=== PATIENT | male | born 1990 | race Caucasian/White ===

== ENCOUNTER 2019-05-23 15:34 | Emergency (ER) | payer SELFPAY ==
[2019-05-23 15:36] VITALS: BP 147/83; PULSE 101; RESP 17; TEMP 37; O2SAT 98; BMI 31.2
--- NOTE | 2019-05-23 15:48 | ED.DCSUM_ITS ---
History of Present Illness Chief Complaint: Other, Pain/Inj Informant: Patient Onset: Weeks - 2 Narrative: 2-week history of swollen lymph node right anterior neck, however started having pain over 2 days. No fevers. Denies tobacco history. Denies dental pain. Denies any hot or cold sensitivities. No sore throat. Reports had a root canal left upper tooth 6 months ago, did not return for crown. However denies any symptoms in that area. No previous similar symptoms in the past. Patient with no PCP. Prior similar symptoms: No Past Medical History - Allergies and Home Meds Allergies/Adverse Reactions: Allergies Penicillins Allergy (Verified 05/23/19 15:35) Anaphylaxis Primary Care Physician: NOT,DEFINED [Primary Care Provider] - Review of Systems General: Denies: Chills, Fever, Sweats Eyes: Denies: Visual changes - bilaterally, Diplopia ENT: Denies: Rhinorrhea, Sore throat Cardiovascular: Denies: Chest pain, Palpitations Respiratory: Denies: Dyspnea, Cough, Dyspnea on exertion Gastrointestinal: Denies: Abdominal pain, Nausea, Vomiting, Diarrhea, Melena, Hematochezia Genitourinary: Denies: Dysuria, Hematuria, Frequency Musculoskeletal: Denies: Back pain, Extremity Pain Skin: Denies: Rash, Wounds Neurological: Denies: Headache, Weakness, Numbness Physical Exam Vital Signs/Narrative: Vital Signs Temp Pulse Resp BP Pulse Ox 05/23/19 15:36 98.6 F 101 H 17 147/83 H 98 Inital Vital Signs reviewed: Yes General: Well nourished, Well developed, No Acute Distress Head: Normocephalic, Atraumatic Eyes: Perrl, EOMI ENT: Moist mucous membranes, No rhinorrhea, - - No dental tenderness or cavities. No sublingual edema or mass. No erythema posterior pharynx. Airway patent. Neck: Supple, - - 2 cm right anterior lymph node tender to palpation. Cardiovascular: Regular rate, Regular rhythm, No murmurs Respiratory: No distress, CTA bilaterally, Chest nontender Abdomen: Soft, Nontender, Nondistended, Normal bowel sounds Back: Nontender, Normal Inspection Extremities: Nontender, No edema Skin: Normal color, No rash Neurological: Alert, Oriented x3, Cranial nerves II-XII grossly intact, Normal Strength, Normal Sensation Psychological: Normal affect, Normal Mood Diagnostic/Tx/Re-eval - Medical Decision Making Patient's vitals stable, exam with anterior cervical lymphadenitis. Unclear etiology at this source. He has no tobacco history. Discussed with patient his concerns, reports with enlarging now painful he got concerned. Primary concern would be cancerous. Discussed with patient diagnostic testing would not be available will need to be performed by specialist. Discussed can obtain imagings however it would not be diagnostic and before evaluation. He is concerned without insurance. Discussed with patient given follow-up with on- clinic specialist for ENT for further evaluation as outpatient. His he will use Tylenol or Motrin as needed for symptom control. He is also given we will start him in clinic for primary follow-up. Signs and symptoms discussed return. All questions were answered. ED Disposition - Plan for ED Patient: Disposition: Home or Assisted Living Diagnosis: Cervical lymphadenitis Instructions: CERVICAL ADENITIS, Antiobiotic Treatment Prescriptions: Clindamycin [Cleocin] 300 mg PO 4X/DAY #80 capsule Referrals: NOT,DEFINED [Primary Care Provider] - Jose Kong MD [STAFF PHYSICIAN] - 3-5 Days if not improving Greta Suzao [NON-STAFF] - 5-7 Days
== END 2019-05-23 16:24 | disposition home or self-care (01) ==
LOC: ED 16:08
PROVIDERS: Emergency Provider Emergency Medicine
DX: I88.9 Nonspecific lymphadenitis, unspecified (principal)
CPT/HCPCS: 99282